=== PATIENT | female | born 1985 | race Caucasian/White ===

== ENCOUNTER → 2021-02-21 | Outpatient (CLI) | payer BC, SELFPAY | END | disposition home or self-care (01) | LOC: LAB 12:08 | PROVIDERS: ATTEND Internal Medicine | DX: R05 Cough (principal); Z11.59 Encounter for screening for other viral diseases; Z20.822 Contact with and (suspected) exposure to COVID-19 | CPT/HCPCS: C9803; U0003 ==

== ENCOUNTER 2024-11-30 17:46 | Emergency (ER) | payer OTHER, SELFPAY ==
[~2024-11-30] VITALS: Ht 177.8 cm; Wt 79.8 kg
[2024-11-30 17:48] VITALS: BP 136/80; PULSE 86; RESP 20; TEMP 98
--- NOTE | 2024-11-30 18:27 | ERN ---
ED Note History of Present Illness Stated Complaint: BODY FLUID EXPOSURE Chief Complaint: Body Fluid Exposure Time Seen by MD: 18:02 Dictation: 39-year-old female presents to the ED for evaluation of body fluid exposure onset [employer]. Patient was exposed to bodily fluid during a procedure where another patient's blood got into her eye. Review of System Dictation Constitutional: Negative for fever,chills, and weight loss Eyes: Negative for injury, pain,redness, and discharge ENT: Negative for injury,pain or swelling Cardiovascular: Negative for chest pain, palpitations, and edema Respiratory: Negative for shortness of breath, cough, and wheezing, Abdomen/GI: Negative for abdominal pain, nausea, vomiting, diarrhea, and constipation Back: Negative for injury and pain : Negative for injury, bleeding and discharge MS/Extremity: Negative for injury and deformity Skin: Negative for rash, and discoloration Neuro: Negative for headache, weakness, numbness, tingling, and seizure Psych: Negative for suicide ideation, homicidal ideation, and hallucinations Initial Vital Sign VS Vital Signs Date Time Temp Pulse Resp B/P (MAP) Pulse Ox O2 Delivery O2 Flow Rate FiO2 11/30/24 17:48 98.1 86 20 136/80 99 Room Air 0 Physical Exam Dictation General: awake, alert, NAD Head/Face: Normocephalic, atraumatic Eyes: PERRL, EOMI, vision at baseline ENT: oral cavity clear, TMs clear, no signs of infection Neck: Trachea midline, supple, no nuchal rigidity Cardiovascular: RRR, normal S1/S2, No MRGs, no JVD Respiratory: CTAB, no respiratory distress, No rales or wheezes Abdomen: Soft, non-tender, non-distended, normal bowel sounds, no guarding or rebound. Skin: Warm, dry, normal turgor, no rash MS/Extremity: Pulses equal, no cyanosis, neurovascular intact, FROM Neuro: COAx4, GCS 15, strength 5/5, CN 2-12 intact, normal cerebellar exam, normal gait, Psych: Normal behavior, mood, and affect normal ED Course ED Course Orders Procedure Category Date Status Time Hiv 1-2 W/Reflex To LAB 11/30/24 In Process Confirm 18:24 Hepatitis B Core Total LAB 11/30/24 In Process 18:24 Hepatitis B Surface LAB 11/30/24 In Process Antibody 18:24 Vital Signs Date Time Temp Pulse Resp B/P (MAP) Pulse Ox O2 Delivery O2 Flow Rate FiO2 11/30/24 17:48 98.1 86 20 136/80 99 Room Air 0 Medical Decision Making MDM MDM: Differential diagnosis: Body fluid exposure Risk of complication and/or morbidity or mortality of patient management: None Medications-Per medication reconciliation Need for hospitalization: Patient does not meet criteria for hospitalization. Need for emergency major/minor surgery: No There are no social concerns with this patient. Prescription drug management Prescriptions will include symptomatic care Patient's prior external medical records from other ER visits were reviewed by me as indicated. Prior testing and results from previous visits were reviewed. Prior tests were taken into account with medical decision making and resource utilization, independent historian/historians were used to obtain complete medical history. I independently interpreted the test that were performed, results were reviewed by me and considered findings on radiology if ordered. Medical management and examination interpretation discussions were had by me with other qualified healthcare professionals as indicated for the patient's care. DX & DISP Disposition: Discharge Departure Impression: Primary Impression: Exposure to body fluid Condition: Stable Referrals: SHADI FORREST (PCP) CRISTIN PEDRO MD Nov 30, 2024 18:27
[2024-11-30 20:03] LABS: HIV 1&2 ANTIBODY Non-Reactive (Negative)
[2024-11-30 20:04] LABS: HIV-1 p24 Antigen Non-Reactive (Negative)
[2024-12-01 04:08] LABS: HEPATITIS B CORE AB TOTAL Non-Reactive (Nonreactive); HEPATITIS B SURFACE ANTIBODY Positive (Reactive)
[2024-12-04 01:08] LABS: HEPATITIS C VIRUS ANTIBODY Non Reactive (Non Reactive)
== END 2024-11-30 18:39 | disposition home or self-care (01) ==
LOC: EDH 17:46
DX: Z77.21 Contact with and (suspected) exposure to potentially hazardous body fluids (principal)
CPT/HCPCS: 36415; 86701; 86704; 86706; 86803; 87390; 99283